=== PATIENT | female | born 1990 | race Caucasian/White ===

== ENCOUNTER 2021-04-07 20:58 | Emergency (ER) | payer MEDICARE, SELFPAY ==
[2021-04-07 21:21] VITALS: BP 123/81; PULSE 125; RESP 16; TEMP 38.3; O2SAT 94; BMI 29.2
[2021-04-07 21:27] VITALS: O2SAT 94
--- NOTE | 2021-04-07 21:47 | ED_ITS ---
HPI - COVID General: Chief Complaint: COVID symptoms Stated Complaint: Tested Postive for Covid Time Seen by Provider: 04/07/21 21:41 Triage information: Exposure to COVID + person last 14 days History of Present Illness: HPI Narrative: Patient presents with Covid positive patient said she was not able to get the steroid shot at [facility]. She said she is supposed get a steroid shot because she cannot take pills. She aches all over has had cold symptoms for a few days. Denies any shortness of breath MD complaint: known COVID positive Prior covid testing: yes, results known Prior testing date: 04/04/21 COVID 19 common symptoms: positive fever(s), chills, non-productive cough, body aches, headache(s), loss of sense of smell and/or taste and nausea; negative throat pain or nasal congestion COVID 19 other sytmptoms: negative chest pain Onset (ago): day(s) Severity: mild COVID Results: No Data to Display Review of Systems Const: Reports: fever(s), chills and body aches Eyes: Denies: change in vision or blurry vision ENMT: Denies: throat pain or nasal congestion Card: Reports: other (does have body aches and it does hurt sporadically when taking breaths); Denies: chest pain or dyspnea on exertion Resp: Reports: non-productive cough GI: Reports: nausea Musc: Denies: extremity pain Skin/Breast: Denies: rash Neuro: Reports: headache(s) Psych: Denies: anxiety or depression Jose Armando/Lymph: Denies: easy bruising Physical Exam Const: COMMON NORMALS: no acute distress GENERAL APPEARANCE: cooperative Resp: COMMON NORMALS: normal respiratory effort and No use of accessory muscles GI: INSPECTION: Yes normal to inspection Psych: COMMON NORMALS: mental status grossly normal Course Vital Signs: Vital signs: Vital Signs Temperature 101.0 F H 04/07/21 21:21 Pulse Rate 88 04/07/21 22:13 Respiratory Rate 18 04/07/21 22:13 Blood Pressure 123/81 04/07/21 21:21 Pulse Oximetry 94 04/07/21 22:13 MDM - COVID MDM Narrative: Medical decision making narrative: Pt encouraged to f/u atg PCP or return if SOB develops or worsening of symptoms. VS are stbal, pt in no distress. Pt requesting [place] because [place] [facility] [place] is willing to take liquid. COVID Results: No Data to Display Discharge Plan Discharge Patient Disposition: Home Clinical Impression: COVID-19 Condition: Stable Prescriptions: New dexamethasone 0.5 mg/5 mL solution 30 ml PO DAILY Qty: 150 RF: 0 Discharge Orders: Discharge ED (Routine); Ordered 04/07/21 Ordered By: Kervin Schneider Discharge Diet: Usual diet Discharge Activity: Increase activity as tolerated Patient Instructions: Viral Syndrome (ED) Activity Restrictions/Additional Instructions: Follow-up with medical provider as directed. Take medications as prescribed. Return to the ER or your medical provider if condition worsens. Please read and understand discharge instructions. If any questions ask please. 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
[2021-04-07] MEDS: ibuprofen Oral Susp 100 mg/5mL UDC 400 MG PO (22:10)
[2021-04-07 22:13] VITALS: PULSE 88; RESP 18; O2SAT 94
== END 2021-04-07 22:14 | disposition home or self-care (01) ==
PROVIDERS: Emergency Provider Nurse Practitioner Family
DX: U07.1 COVID-19 (principal)
CPT/HCPCS: 99283

== ENCOUNTER 2021-04-09 10:03 | Outpatient (CLI) | payer MEDICARE, SELFPAY ==
[2021-04-09 10:15] VITALS: BP 106/78; PULSE 91; RESP 16; TEMP 36.6; O2SAT 97; BMI 23.8
[2021-04-09 11:02] VITALS: BP 102/73; PULSE 72; RESP 18; O2SAT 94
[2021-04-09 12:02] VITALS: BP 100/77; PULSE 82; RESP 18; TEMP 37; O2SAT 95
== END 2021-04-09 10:04 | disposition home or self-care (01) ==
LOC: OPS 10:06
PROVIDERS: PCP Family Medicine; Visit Provider Nurse Practitioner Family
DX: U07.1 COVID-19 (principal)
CPT/HCPCS: 96365